=== PATIENT | female | born 1990 | race Caucasian/White ===

== ENCOUNTER → 2020-02-08 10:49 | Outpatient (CLI) | payer OTHER, SELFPAY ==
[2020-02-08 11:15] LABS: Basophils % 0.8 % (0.1-2.0); Eosinophils # 0.2 K/mm3 (0.0-0.4); Eosinophils % 4.1 % (0.1-12.0); Hematocrit 42.4 % (37.0-47.0); Hemoglobin 14.5 g/dL (12.2-16.2); Lymphocytes % 41.4 % (10-50); Mean Corpuscular HGB Conc 34.2 g/dL (31.8-35.4); Mean Corpuscular Hemoglobin 28.6 pg (27.0-31.2); Mean Corpuscular Volume 83.7 fl (81-99); Mean Platelet Volume 7.6 fl (7.4-10.4); Monocytes # 0.2 K/mm3 (0.1-1.0); Monocytes % 4.4 % (1.7-9.3); Neutrophils # 2.4 K/mm3 (1.8-7.8); Neutrophils % 49.3 % (37.0-80.0); Platelet Count 290 K/mm3 (142-424); Red Blood Count 5.06 M/mm3 (4.20-5.40); Red Cell Distribution Width 13.1 % (11.5-17.5); White Blood Count 4.8 K/mm3 (4.8-10.8)
[2020-02-08 12:24] LABS: Alanine Aminotransferase 20 U/L (12-78); Albumin Level 5.4 g/dl (3.5-5.0); Albumin/Globulin Ratio 1.6 (1.1-1.8); Alkaline Phosphatase 74 U/L (38-126); Anion Gap 15.3 mEq/L (5-15); Aspartate Amino Transferase 32 U/L (14-36); Bilirubin,Total 0.6 mg/dl (0.2-1.3); Blood Urea Nitrogen 10 mg/dl (7-17); Calcium 10.2 mg/dl (8.4-10.2); Carbon Dioxide 26 mmol/L (22.0-30.0); Chloride 99 mmol/L (98-107); Estimated Glomerular Filt Rate 117 ml/min (>60); GFR (African American) 142 ML/MIN (>60); Globulin 3.3 g/dL (1.3-3.2); Glucose 98 mg/dl (74-100); Potassium 4.3 mmoL/L (3.5-5.1); Sodium 136 mmol/L (136-145); Total Protein,Serum 8.7 g/dl (6.3-8.2)
[2020-02-08 12:39] LABS: Free Thyroxine Index 2.5 ug/dL (5.93-13.13); T4 (Thyroxine) 7.8 ug/dl (5.53-11.0); Triiodothryronine (T3) Uptake 32 % (23.5-40.5)
[2020-02-08 12:53] LABS: Thyroid Stimulating Hormone 1.34 uIU/mL (0.465-4.68)
[2020-02-08 12:55] LABS: 25-OH Vitamin D, Total 33.3 ng/mL (30-100)
[2020-02-08 14:05] LABS: Ferritin 22.9 ng/ml (6.24-137)
[2020-02-09 08:21] LABS: Folate 15.3 ng/mL (>3.0); Vitamin B12 413 pg/mL (232-1245)
== END ==
PROVIDERS: PCP Internal Medicine Adolescent Medicine; Visit Provider Internal Medicine Adolescent Medicine
DX: Z00.00 Encounter for general adult medical examination without abnormal findings (principal); Z86.2 Personal history of diseases of the blood and blood-forming organs and certain disorders involving the immune mechanism
CPT/HCPCS: 36415; 80053; 82306; 82607; 82728; 82746; 84436; 84443; 84479; 85025

== ENCOUNTER 2021-02-21 17:06 | Emergency (ER) | payer OTHER, SELFPAY ==
--- NOTE | 2021-02-21 17:27 | XR_ITS ---
PROCEDURE INFORMATION: Exam: XR Right Foot Exam date and time: 02/21/2021 5:27 PM Age: 30 years old Clinical indication: Patient HX: PT rolled foot stepping off step, right lateral foot pain and swelling TECHNIQUE: Imaging protocol: XR Right foot. Views: 3 or more views. COMPARISON: No relevant prior studies available. FINDINGS: Bones/joints: Transverse fracture of the base of the 5th metatarsal is present. There is no evidence of joint malalignment or dislocation. Soft tissues: Soft tissue swelling is present. IMPRESSION: 1. Transverse fracture of the base of the 5th metatarsal is present. 2. Soft tissue swelling is present. 3. No evidence of acute dislocation.
[2021-02-21 17:41] VITALS: BP 112/49; PULSE 73; RESP 14; TEMP 36.8; O2SAT 100; BMI 19.2
--- NOTE | 2021-02-21 17:53 | HMH.EDUTC ---
[facility] [place] Impression: Fracture of fifth metatarsal bone Qualifiers: Encounter type: initial encounter Fracture type: closed Fracture alignment: nondisplaced Laterality: right Qualified Code(s): S92.354A - Nondisplaced fracture of fifth metatarsal bone, right foot, initial encounter for closed fracture Disposition: Home, Self-Care Condition on Discharge: Good Instructions: How to Use Crutches, DI for Foot Fracture Additional Instructions: Rest the extremity, apply ice for 15 minutes as tolerated three or four times per day, Elevate the extremity as tolerated while you are resting. Take ibuprofen for pain. I sent in a prescription to your pharmacy. Follow up with Dr. Baldwin (podiatry). Please call in the morning so they can schedule to see you within the next few days. I put in a referral but you need to call her office and schedule an appointment. Follow up with your regular doctor. GO TO THE ER FOR ANY WORSENING SYMPTOMS Prescriptions: Ibuprofen [Ibuprofen 800mg Tablet] 800 mg PO Q8HP PRN #30 tab PRN Reason: Moderate Pain Transmission Status: Received by [id number] Referrals: Jayy Carson MD [Primary Care Provider] - Gabby Baldwin DPM [Staff Physician] - Time of Disposition: 18:25 Medical Decision Making - Medical Records Medical records reviewed: No: I reviewed the patient's medical records. - Shahzad Inquiry Pt receiving controlled substance: No Vital Signs: 02/21/21 17:41 02/21/21 18:32 Temperature 98.2 F 98 F Temperature Source Oral Pulse Rate 70 Pulse Rate [Right] 73 Respiratory Rate 14 16 Blood Pressure 113/56 L Blood Pressure [Right Arm] 112/49 L Blood Pressure Mean [Right Arm] 70 Blood Pressure Source [Right Arm] Automatic Cuff 02 Sat by Pulse Oximetry 100 - Radiology Data #1 Image(s): Foot/Toes Image Reviewed: Yes I reviewed the patient's radiology image, Yes I have reviewed radiologist's interpretation PROCEDURE INFORMATION: Exam: XR Right Foot Exam date and time: 02/21/2021 5:27 PM Age: 30 years old Clinical indication: Patient HX: PT rolled foot stepping off step, right lateral foot pain and swelling TECHNIQUE: Imaging protocol: XR Right foot. Views: 3 or more views. COMPARISON: No relevant prior studies available. FINDINGS: Bones/joints: Transverse fracture of the base of the 5th metatarsal is present. There is no evidence of joint malalignment or dislocation. Soft tissues: Soft tissue swelling is present. IMPRESSION: 1. Transverse fracture of the base of the 5th metatarsal is present. 2. Soft tissue swelling is present. 3. No evidence of acute dislocation. [facility] [place] - General Stated complaint: AO fall today twisted R ankle Time Seen by Provider: 02/21/21 18:10 Mode of Arrival: Ambulatory Source of Information: Patient Limitations: No Limitations Description of Symptoms (Recalled from Triage Doc. by RN): pt fell and twisted her R foot. pt states it now has two knots on it and is painful. HEENT Symptoms (Recalled from RN notes): No Resp Symptoms (Recalled from RN notes): No Skin Symptoms (Recalled from RN notes): No MS Symptoms (Recalled from RN notes): Yes (R foot pain) Functional Status (Recalled from RN notes): na - History of Present Illness Provider Complaint: Earlier today she stepped down off her steps at home and came down wrong on her right foot. She has had right foot pain and swelling since then. The pain is much worse with bearing weight and walking on the foot. She denies any additional injury. - Related Data Previous Rx's Medication Instructions Recorded Ibuprofen [Ibuprofen 800mg 800 mg PO Q8HP PRN #30 tab 02/21/21 Tablet] Allergies Allergy/AdvReac Type Severity Reaction Status Date / Time No Known Allergies Allergy Verified 02/21/21 17:46 - Worker's Comp Is this a Worker's Comp ned
[2021-02-21 18:32] VITALS: BP 113/56; PULSE 70; RESP 16; TEMP 36.6
== END 2021-02-21 18:32 | disposition home or self-care (01) ==
PROVIDERS: Emergency Provider Nurse Practitioner Family; PCP Internal Medicine Adolescent Medicine
DX: S92.354A Nondisplaced fracture of fifth metatarsal bone, right foot, initial encounter for closed fracture (principal); W10.9XXA Fall (on) (from) unspecified stairs and steps, initial encounter; Y92.099 Unspecified place in other non-institutional residence as the place of occurrence of the external cause
CPT/HCPCS: 29515; 73630; 99202; G0463

== ENCOUNTER → 2021-02-23 10:27 | Outpatient (CLI) | payer OTHER, SELFPAY ==
--- NOTE | 2021-02-23 10:42 | XR_ITS ---
PROCEDURE: XR CHEST 2V CLINICAL HISTORY: ALLERGIES,CONGESTION,PRE-OP COMPARISON: No exams were available for comparison FINDINGS: The cardiomediastinal silhouette and pulmonary vascularity are within normal limits. No lobar consolidation or collapse. There is a 3 mm nodular opacity in the right apex overlying the 1st rib anteriorly and may be due to a granuloma. No acute bony abnormalities. IMPRESSION: No acute findings. Dictated by: Solomon Flores MD 02/26/2021 13:26 Solomon Flores MD in [place] 02/26/2021 13:26
[2021-02-23 10:52] LABS: Basophils # 0.1 K/mm3 (0-0.2); Basophils % 0.8 % (0.1-2.0); Eosinophils # 0.3 K/mm3 (0.0-0.4); Eosinophils % 4.5 % (0.1-12.0); Hematocrit 40.2 % (37.0-47.0); Hemoglobin 12.9 g/dL (12.2-16.2); Lymphocytes # 1.6 K/mm3 (0.7-4.5); Lymphocytes % 28.6 % (10-50); Mean Corpuscular HGB Conc 32.1 g/dL (31.8-35.4); Mean Corpuscular Hemoglobin 27.1 pg (27.0-31.2); Mean Corpuscular Volume 84.6 fl (81-99); Mean Platelet Volume 6.8 fl (7.4-10.4); Monocytes # 0.3 K/mm3 (0.1-1.0); Monocytes % 5.4 % (1.7-9.3); Neutrophils # 3.5 K/mm3 (1.8-7.8); Neutrophils % 60.6 % (37.0-80.0); Platelet Count 302 K/mm3 (142-424); Red Blood Count 4.76 M/mm3 (4.20-5.40); Red Cell Distribution Width 12.2 % (11.5-17.5); White Blood Count 5.7 K/mm3 (4.8-10.8)
--- NOTE | 2021-02-23 11:00 | ECG_ITS ---
APPROVED REPORT Exam: Resting ECG HR:70 bpm ECG Measurements Heart Rate 70 AXES SD 142 P 44 QRSd 100 QRS 82 QT 398 T 74 QTc 429 Conclusion Normal sinus rhythm Incomplete right bundle branch block Borderline ECG Electronically signed by : Jayy Carson, 02/23/2021 17:42:42
[2021-02-23 12:27] LABS: Chloride 105 mmol/L (98-107); Potassium 4.8 mmoL/L (3.5-5.1); Sodium 139 mmol/L (136-145)
[2021-02-23 12:29] LABS: Alanine Aminotransferase 32 U/L (12-78); Aspartate Amino Transferase 35 U/L (14-36); Blood Urea Nitrogen 11 mg/dl (7-17); Estimated Glomerular Filt Rate 117 ml/min (>60); GFR (African American) 141 ML/MIN (>60)
[2021-02-23 12:30] LABS: Albumin Level 4.4 g/dl (3.5-5.0); Albumin/Globulin Ratio 1.5 (1.1-1.8); Alkaline Phosphatase 85 U/L (38-126); Anion Gap 13.8 mEq/L (5-15); Bilirubin,Total 0.6 mg/dl (0.2-1.3); Calcium 9.3 mg/dl (8.4-10.2); Carbon Dioxide 25 mmol/L (22.0-30.0); Glucose 88 mg/dl (74-100); Total Protein,Serum 7.4 g/dl (6.3-8.2)
[2021-02-24 14:05] LABS: HCG Qualitative, Serum Negative (Negative)
== END ==
PROVIDERS: Visit Provider Podiatrist
DX: Z01.818 Encounter for other preprocedural examination (principal); S99.191A Other physeal fracture of right metatarsal, initial encounter for closed fracture; S92.351A Displaced fracture of fifth metatarsal bone, right foot, initial encounter for closed fracture
CPT/HCPCS: 36415; 71046; 80053; 84702; 84703; 85025; 93005

== ENCOUNTER 2021-03-03 06:05 | Day surgery (SDC) | payer BC, SELFPAY ==
[2021-02-24 13:00] VITALS: BMI 19.2
[2021-03-03] VITALS (10 sets, daily range): BP systolic 112–133; BP diastolic 51–74; PULSE 84–112; RESP 12–18; TEMP 36.4–37.2; O2SAT 99–100
[2021-03-03 06:39] LABS: Coronavirus 19, PCR Not Detected (NotDetected); Influenza A, PCR Not Detected (NotDetected); Influenza B, PCR Not Detected (NotDetected)
[2021-03-03 06:54] LABS: HCG Qualitative, Serum Negative (Negative)
--- NOTE | 2021-03-03 07:13 | HMH.ANESCL ---
[facility] Anesthesia Checklist - Patient Identification Patient Identification: Arm Band - Structural Data Admitted From: Home Planned Operative Procedure/s: ORIF Right Metatarsal Consent for Planned Operative Procedure(s) Verified: Yes Verified Documents: Surgical Consent, History and Physical - NPO Status Verified Time NPO: 00:00 - Additional verifications Anesthesia Reactions: No Hx Blood Transfusions: No Blood Transfusion Reaction: No - Airway Assessment C-Spine Mobility Assessed: Yes (mp2) TMJ Mobility Assessed: Yes Dentition: Good Dentition - Neurological Assessment Level of Consciousness: Awake, Alert - Anesthesia Plan Anesthesia Risk discussed: Yes Anesthesia Plan: Verified ASA Class: II Anesthesia Type: General w/block [facility] History I have reviewed the patient's past medical history: Yes Medical History: Reports:: Depression, Hypertension Denies:: Cancer, Diabetes Mellitus Type 1, Diabetes Mellitus Type 2, Internal Pacemaker, MRSA, Seizures *Have you ever received a pneumonia vaccine?: No *Have you received a flu vaccine this season?: No Other Medical History: Reports: Other (tacchycardia). Denies: Blood Transfusion Reaction Anesthesia experience/problems:: nac Other Surgeries: Yes: , Other. No: Pacemaker Amputation: No Fractures: Yes - *Social History Last grade of school completed: Advanced degree Smoking Status: Never smoker Alcohol Intake: never Alcohol Intake Frequency:: holidays/special occasions only Substance Use Type: denies use *Occupational Status:: unemployed Housing: house Household Members: spouse, children *Travel in the last 8 weeks: Inside the [place] - Psychiatric History Pschychiatric History:: Reports:: Depression Family Hx:: Diabetes
--- NOTE | 2021-03-03 08:31 | XR_ITS ---
PROCEDURE: XR FOOT RT 2V CLINICAL INDICATION: ORIF RT FOOT IN OR USING C ARM COMPARISON: CR XR FOOT RT MIN 3V from 02/21/2021 FINDINGS: Fluoroscopy time: 1 minutes and 3 seconds S/p longitudinal screw placement through the proximal aspect of the 5th metatarsal stabilizing the transverse metatarsal fracture. Good alignment. Other findings:None. IMPRESSION: Good alignment status post ORIF 5th metatarsal fracture Dictated by: Solomon Flores MD 03/03/2021 09:55 Solomon Flores MD in [place] 03/03/2021 09:55
--- NOTE | 2021-03-03 08:40 | HMH.OPNOTE ---
Date of procedure: 03/03/21 Pre-op Diagnosis:: 1. Right 5th metatarsal Ballard fracture Post-op Diagnosis:: Same Procedure performed:: 1. Right 5th metatarsal Ballard ORIF 2. Right bone marrow aspiration 3. Application of posterior splint Surgeon:: Gabby Baldwin DPM WIRE MILL ROVER:: Flori Estes Anesthesia: GETA, regional (Right popliteal block) Estimated blood loss (mL): 10 Clinical Note:: Patient is a 30F who twisted the right foot/ankle on her deck 02/21/21. She was unable to bear weight. Came to ED. X-rays reviewed and discussed with the patient. IMPRESSION: 1. Transverse fracture of the base of the 5th metatarsal is present. 2. Soft tissue swelling is present. 3. No evidence of acute dislocation. I feel there is some rotation of the base of the fifth metatarsal fracture fragment with impingement anteriorly fifth metatarsal cuboid region. Conservative treatment discussed but not recommended due to risk of impingement and metatarsal cuboid arthritis. 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 We discussed surgery. All risks and benefits were discussed including but not limited to: damage to blood vessels and nerves, bleeding, infection, wound complications, delayed, mal or non-union of bone, post-traumatic arthritis, need for further surgery, implant failure, need for removal of implant, prolonged or permanent swelling of the extremity, prolonged or permanent pain or deformity, CRPS/RSD, DVT/PE, and anesthetic complications including blood pressure and . No guarantees were given. All questions fully answered. The patient verbalized understanding and agreed to proceed with surgery. Consent was obtained. Medical clearance-PCP Caitlin Chen apt 03/01/21. Necessary labs and pre-op testing ordered: hcg, CBC, BMP, EKG, CXR, covid. Pt was given e-Rx for [place] 7.5/325 #30, Zofran, she has Motrin from ED. Patient is NWB in fracture boot and crutches. Operative findings:: The right foot has a 5th metatarsal fracture noted at the metataphseal-diaphyseal junction. Transverse fracture malrotation. Some traumatic bruising and swelling noted to the dorsal forefoot lateral foot fracture site. Negative anterior ankle. No intra-operative x-ray findings of other fractures. Operative note:: On this date and time patient was deemed an appropriate surgical candidate. With informed consent signed, pre-op regional popliteal block given by anesthesia. The patient was taken to the operating theater. The patient was positioned supine. General anesthesia was induced. IV Ancef given. Tourniquet applied to the right thigh. Right lower extremity was prepped and draped in normal sterile fashion. Right Bone Marrow Aspiration: Attention was directed to the lateral foot, where intra-op fluoroscopy was used to map out the 5th metatarsal base on both the AP, MO and lateral views. 15 blade was used to make a stab incision over the fracture site under intraoperative fluoroscopy. Dissection down to level of bone. Currette used to clean the fracture site. Saline used to flush wound. 6 cc of blood was withdrawn to mix with the Ignite for BMA to insert into fracture site. Right 5th Metatarsal/Ballard Fracture ORIF: Attention was directed to the lateral foot, where intra-op fluoroscopy was used to map out the 5th metatarsal base on both the AP, MO and lateral views. Next, a 15' blade was used to make a small incision proximal to the 5th met base. Blunt dissection was utilitzed to dissect thru skin and subcutaneous tissue with care taken to maintain surgical hemostasis and safely retract neurovascular structures. Dissection was then carried bluntly with a hemostat to the bone. Fracture was derotated and reduced. The wound was flushed with copious amounts of saline. A guide wire for a 4.5mm Fuentes medical screw was inserted under fluoro. Position was checked in all 3 planes. The K-wire was in good position, extending down the medullary canal. At this point, a cannulated drill and tap were used. Ignite
--- NOTE | 2021-03-03 08:41 | HMH.ANESI ---
[facility] Anesthesia Record Part I Intake, IV Amount: 1,000 Estimated blood loss (mL): 5 Urine output (mL): 0 Blood Pressure: 112/51 SaO2: 100 Pulse Rate: 84 Respiratory Rate: 12 Temperature: 97.5 F Patient is:: Drowsy Stable to PACU at:: 08:40
--- NOTE | 2021-03-03 09:00 | XR_ITS ---
PROCEDURE: XR FOOT RT MIN 3V CLINICAL INDICATION: R 5th met ORIF Follow-up fracture COMPARISON: CR XR FOOT RT MIN 3V from 02/21/2021 CR XR FOOT RT 2V from 03/03/2021 FINDINGS: There is a splint in place posteriorly. A longitudinal screw has been placed there is a proximal aspect of the 5th metatarsal stabilizing the metatarsal fracture with good alignment The joint spaces are well-preserved. No significant degenerative/arthritic changes. No erosive changes evident. Other findings:None. IMPRESSION: Good alignment status post ORIF 5th metatarsal fracture Dictated by: Solomon Flores MD 03/03/2021 09:27 Solomon Flores MD in [place] 03/03/2021 09:27
--- NOTE | 2021-03-03 09:56 | P.PN_ITS ---
[facility] Anesthesia Record Part II Discharge Time: 09:08 Destination: Surgical Day Care (OP Surgery) PACU nurse assessment reviewed?: Yes Patient Condition:: Good Anesthesia Complications:: None Swallowing reflex intact?: Yes Cyanosis?: No Blood Pressure: 121/64 Pulse Rate: 98 Temperature: 97.5 F Mental Status: Alert & Oriented Pain level:: 0 Nausea and/or vomitting:: None Intake, IV Amount: 0
== END 2021-03-03 09:45 | disposition home or self-care (01) ==
LOC: OR 06:06
PROVIDERS: PCP Internal Medicine Adolescent Medicine; Visit Provider Podiatrist
PROC: (CPT 28485; principal; 2021-03-03 07:30)
DX: S92.351A Displaced fracture of fifth metatarsal bone, right foot, initial encounter for closed fracture (principal); S93.491A Sprain of other ligament of right ankle, initial encounter; Z20.822 Contact with and (suspected) exposure to COVID-19; W10.8XXA Fall (on) (from) other stairs and steps, initial encounter; Y92.017 Garden or yard in single-family (private) house as the place of occurrence of the external cause
CPT/HCPCS: 28485; 38220; 36415; 73620; 73630; 76000; 84703; 96374; J2405; U0003

== ENCOUNTER → 2021-04-07 13:43 | Outpatient (CLI) | payer BC, SELFPAY ==
--- NOTE | 2021-04-07 13:49 | XR_ITS ---
PROCEDURE: XR FOOT WT BEARING RT 3V CLINICAL INDICATION: post-op Follow-up surgery COMPARISON: CR XR FOOT RT MIN 3V from 02/21/2021 CR XR FOOT RT 2V from 03/03/2021 CR XR FOOT RT MIN 3V from 03/03/2021 FINDINGS: Longitudinal screw remains at the base the right 5th metatarsal stabilizing the nondisplaced transverse fracture. There is good alignment. There is generalized osteopenia of the proximal aspect of the 5th metatarsal. Fracture line is barely visible The joint spaces are well-preserved. No significant degenerative/arthritic changes. No erosive changes evident. Other findings:None. IMPRESSION: Healing fracture base of 5th metatarsal status post ORIF Dictated by: Solomon Flores MD 04/07/2021 15:37 Solomon Flores MD in [place] 04/07/2021 15:37
== END ==
PROVIDERS: Visit Provider Podiatrist
DX: S99.191D Other physeal fracture of right metatarsal, subsequent encounter for fracture with routine healing (principal); S92.351D Displaced fracture of fifth metatarsal bone, right foot, subsequent encounter for fracture with routine healing; Z98.890 Other specified postprocedural states
CPT/HCPCS: 73630

== ENCOUNTER → 2021-05-17 09:34 | Outpatient (CLI) | payer BC, SELFPAY ==
--- NOTE | 2021-05-17 09:41 | XR_ITS ---
PROCEDURE: XR FOOT WT BEARING RT 3V CLINICAL INDICATION: postop views, fracture eval COMPARISON: CR XR FOOT RT MIN 3V from 02/21/2021 CR XR FOOT RT 2V from 03/03/2021 CR XR FOOT RT MIN 3V from 03/03/2021 CR XR FOOT WT BEARING RT 3V from 04/07/2021 FINDINGS: Prior ORIF 5th metatarsal with longitudinal screw in place with good alignment of the healing transverse fracture. The joint spaces are well-preserved. No significant degenerative/arthritic changes. No erosive changes evident. Other findings:None. IMPRESSION: Good alignment healing fracture status post ORIF 5th metatarsal base Dictated by: Solomon Flores MD 05/17/2021 09:53 Solomon Flores MD in [place] 05/17/2021 09:53
== END ==
PROVIDERS: Visit Provider Podiatrist
DX: S99.191D Other physeal fracture of right metatarsal, subsequent encounter for fracture with routine healing (principal); S92.351D Displaced fracture of fifth metatarsal bone, right foot, subsequent encounter for fracture with routine healing
CPT/HCPCS: 73630

== ENCOUNTER → 2021-07-26 10:09 | Outpatient (CLI) | payer BC, SELFPAY ==
--- NOTE | 2021-07-26 10:12 | XR_ITS ---
PROCEDURE: XR FOOT WT BEARING RT 3V CLINICAL INDICATION: postop views, fracture eval COMPARISON: CR XR FOOT RT 2V from 03/03/2021 CR XR FOOT RT MIN 3V from 03/03/2021 CR XR FOOT WT BEARING RT 3V from 04/07/2021 CR XR FOOT WT BEARING RT 3V from 05/17/2021 FINDINGS: Status post ORIF 5th metatarsal fracture with longitudinal screw in place. There is good alignment. Fracture line is only barely visible. Minimal offset noted at the proximal articular surface of the 5th metatarsal not significantly changed The joint spaces are well-preserved. No significant degenerative/arthritic changes. No erosive changes evident. Other findings:None. IMPRESSION: Status post ORIF healing nondisplaced 5th metatarsal fracture Dictated by: Solomon Flores MD 07/26/2021 13:54 Solomon Flores MD in [place] 07/26/2021 13:54
== END ==
PROVIDERS: Visit Provider Podiatrist
DX: S99.191A Other physeal fracture of right metatarsal, initial encounter for closed fracture (principal); Z98.890 Other specified postprocedural states
CPT/HCPCS: 73630

== ENCOUNTER → 2021-07-27 14:59 | Outpatient (CLI) | payer BC, SELFPAY ==
[2021-07-27 17:08] LABS: Vitamin B12 689 pg/mL (239-931)
== END ==
PROVIDERS: Visit Provider Specialist
DX: E83.10 Disorder of iron metabolism, unspecified (principal); G43.709 Chronic migraine without aura, not intractable, without status migrainosus; R29.2 Abnormal reflex
CPT/HCPCS: 36415; 82607; 82728; 82746

== ENCOUNTER 2022-01-31 11:57 | Emergency (ER) | payer BC, SELFPAY ==
--- NOTE | 2022-01-31 12:02 | HMH.EDUTC ---
[facility] [place] [facility] [place] Impression: Poison sarah Disposition: Home, Self-Care Condition on Discharge: Good Instructions: DI for Poison Sarah Allergy Additional Instructions: Avoid contact with the offending substance (poison sarah). Don't start the oral steroids until tomorrow. Don't put the topical steroids (triamcinolone) on your face or your groin. Follow up with your regular doctor. GO TO THE ER FOR ANY WORSENING SYMPTOMS OR CONCERNS The hydroxyzine that we prescribed is very similar to benedryl, but it may help with your itching better. Don't take it and benedryl within 6 hours of each other because it would make you very drowsy. Prescriptions: hydrOXYzine HCL [Hydroxyzine HCl] 25 mg PO Q6HP PRN #30 tab PRN Reason: Itching Transmission Status: Received by [id number] methylPREDNISolone [Medrol] 4 mg PO DIRECTED 6 Days #21 packet Transmission Status: Received by [id number] Triamcinolone Acetonide 1 applicatio TP TIDP PRN 7 Days #1 gm PRN Reason: Itching Transmission Status: Received by [id number] Referrals: Nikki Chen MD [Primary Care Provider] - Time of Disposition: 12:28 Medical Decision Making - Medical Records Medical records reviewed: No: I reviewed the patient's medical records. - Shahzad Inquiry Pt receiving controlled substance: No Vital Signs: 01/31/22 12:07 01/31/22 12:29 Temperature 98.1 F 98.1 F Temperature Source Oral Pulse Rate 92 H Pulse Rate [Left Radial] 92 H Respiratory Rate 17 17 Blood Pressure 127/71 Blood Pressure [Right Arm] 127/71 Blood Pressure Mean [Right Arm] 89 02 Sat by Pulse Oximetry 100 Orders (Tests/Meds): ED MEDICATIONS Discontinued Medications Generic Name Dose Route Start Last Admin Trade Name Freq PRN Reason Stop Dose Admin Methylprednisolone Sodium Succinate 125 mg 01/31/22 12:21 01/31/22 12:27 Methylprednisolone Sod Succ 125mg Vial IM 01/31/22 12:22 125 mg ONCE ONE Administration [facility] [place] - General Stated complaint: poison sarah Time Seen by Provider: 01/31/22 12:02 - History of Present Illness Provider Complaint: She states that for the past 2 days she has had worsening rash from poison sarah. She worked outside in [place] before her syptoms began. She states that the rash is basically all over her. - Related Data Home Medications Medication Instructions Recorded Confirmed venlafaxine 37.5 mg 37.5 mg PO DAILY cap 07/27/21 01/31/22 capsule,extended release 24 hr ferrous sulfate 142 mg (45 mg 142 mg PO DAILY 08/31/21 10/28/21 iron) tablet,extended release propranolol 10 mg tablet 10 mg PO DAILY tab 08/31/21 01/31/22 sumatriptan succinate 100 mg tablet tab PO 08/31/21 10/28/21 naproxen 250 mg tablet 250 mg PO BID PRN 10/28/21 10/28/21 Previous Rx's Medication Instructions Recorded trazodone 50 mg tablet 50 mg PO HS 30 Days #90 tab 10/28/21 Triamcinolone Acetonide 1 applicatio TP TIDP PRN 7 Days #1 01/31/22 gm hydrOXYzine HCL [Hydroxyzine HCl] 25 mg PO Q6HP PRN #30 tab 01/31/22 methylPREDNISolone [Medrol] 4 mg PO DIRECTED 6 Days #21 01/31/22 packet Allergies Allergy/AdvReac Type Severity Reaction Status Date / Time No Known Allergies Allergy Verified 01/31/22 12:11 [facility] History - Hepatitis A Screen Attestation statement:: This patient has been screened for Hepatitis A risk factors. I have reviewed the patient's past medical history: Yes Medical History: Reports:: Depression, Hypertension Denies:: Cancer, Diabetes Mellitus Type 1, Diabetes Mellitus Type 2, Internal Pacemaker, MRSA, Seizures Other Medical History: Reports: Other. Denies: Blood Transfusion Reaction Other Surgeries: Yes: , Other. No: Pacemaker Amputation: No Fractures: Yes Comment: oral. Right 5th met ORIF - Social History Smoking Status: Never smoker Alcohol Intake: never Alcohol Intake Frequency:: holidays/special occasions only Subst
[2022-01-31 12:07] VITALS: BP 127/71; PULSE 92; RESP 17; TEMP 36.7; O2SAT 100; BMI 19.3
[2022-01-31 12:29] VITALS: BP 127/71; PULSE 92; RESP 17; TEMP 36.7
== END 2022-01-31 12:37 | disposition home or self-care (01) ==
PROVIDERS: Emergency Provider Nurse Practitioner Family; PCP Student in an Organized Health Care Education/Training Program
DX: L23.7 Allergic contact dermatitis due to plants, except food (principal)
CPT/HCPCS: 96372; 99212; G0463

== ENCOUNTER 2023-11-02 20:38 | Outpatient (CLI) | payer BC, SELFPAY | END 2023-11-02 23:59 | LOC: LAB.DROPOF 20:39 | PROVIDERS: PCP Student in an Organized Health Care Education/Training Program; Visit Provider Student in an Organized Health Care Education/Training Program | DX: J02.9 Acute pharyngitis, unspecified (principal) | CPT/HCPCS: 87070 ==